=== PATIENT | male | born 1945 | race Caucasian/White ===

== ENCOUNTER 2022-05-03 06:26 | Emergency (ER) | payer OTHER, SELFPAY ==
[2022-05-03 06:27] VITALS: BP 197/106; PULSE 93; RESP 22; TEMP 36.4; O2SAT 97; BMI 24.5
--- NOTE | 2022-05-03 06:49 | CT_ITS ---
INDICATION: Cervical radiculopathy EXAMINATION: CT CERVICAL SPINE - CT Spine Cervical W/O Contrast Injection TECHNIQUE: Helically acquired images were obtained of the cervical spine. 2D reformatted images were reviewed. A radiation dose optimization technique was used for this scan. COMPARISON: None. FINDINGS: ALIGNMENT: Posterior subluxation of C1 on C2 up to 7 mm on the left. VERTEBRAL BODIES: Status post C3-C6 anterior spine fusion hardware and interbody spacers. No fracture or acute abnormality. DISC SPACES: Multilevel degenerative changes with mild to moderate spinal canal narrowing. POSTERIOR ELEMENTS: Normal. SPINAL CANAL: Normal. PARASPINAL SOFT TISSUES: Normal. LUNG APICES: Biapical paraseptal emphysema. OTHER: None. CT/Spine Cervical without Contras IMPRESSION: 1. No acute fracture. 2. Posterior subluxation of C1 on C2. 3. Status post C3-C5 spinal fusion. 4. Degenerative changes contributing to mild to moderate spinal canal narrowing. If there is continued clinical concern consider further characterization with MRI of the cervical spine. Electronically Signed: Adryan Bird MD at 7:46 EST ,
--- NOTE | 2022-05-03 06:49 | CT_ITS ---
INDICATION: Lumbar radiculopathy EXAMINATION: CT LUMBAR SPINE - CT Spine Lumbar W/O Contrast Injection TECHNIQUE: Helically acquired images were obtained of the lumbar spine. 2D reformats were reviewed. A radiation dose optimization technique was used for this scan. IV Contrast dosage and agent: None. COMPARISON: None. FINDINGS: VERTEBRAE: No fracture or traumatic subluxation. No discrete lytic or blastic abnormality observed. Normal alignment. DISCS and SPINAL CANAL: Multilevel degenerative changes with prominent disc desiccation, disc osteophyte complex formation and facet hypertrophy worst between L4 and S1 with severe spinal canal narrowing likely compressing the descending and severe neural foraminal narrowing worst on the left at L5-S1 likely contacting the exiting nerve root.. Mild levoscoliotic changes in the lumbar spine. VISUALIZED ABDOMEN: Atherosclerotic calcifications. Cystic changes in the partially visualized bilateral kidneys, incompletely evaluated. CT/Spine Lumbar without Contrast IMPRESSION: 1. No acute fracture or subluxation. 2. Severe multilevel degenerative changes with severe spinal canal narrowing likely compressing the descending nerve roots and severe left L5-S1 neuroforaminal narrowing likely contacting the exiting nerve root. Can be further characterized with MRI lumbar spine. Electronically Signed: Adryan Bird MD at 7:52 EST ,
[2022-05-03 07:03] LABS: Absolute Lymphocyte Count 2.63 X10^3/uL (0.83-4.51); Basophil# 0.05 X10^3/uL; Basophil% 0.5 % (0-1); Eosinophil# 0.26 X10^3/uL; Eosinophils% 2.6 % (0-5); Hematocrit 40.8 % (40-54); Hemoglobin 13.4 g/dL (13.0-16.5); Lymphocyte # 2.63 X10^3/ul (0.83-4.51); Lymphocyte % 26.7 % (19-41); Mean Corp Hgb Conc 32.8 g/dL (32-36); Mean Corpuscular Hgb 30.1 pg (27.0-32.0); Mean Corpuscular Volume 91.7 fL (80-94); Mean Platelet Vol. 9.9 fl (6.2-12.0); Monocyte# 0.85 X10^3/uL; Monocyte% 8.6 % (0-10); NRBC Flagged by Analyzer 0 % (0-5); Neutrophil # 6.03 X10^3/uL (2.7-7.7); Neutrophil % 61.2 % (47-70); Platelet Count 256 K/mm3 (150-450); RBC Distribution Width CV 12.8 % (11.6-14.6); RBC Distribution Width SD 43.3 fl (35.1-43.9); Red Blood Count 4.45 M/mm3 (4.6-6.2); White Blood Count 9.9 K/mm3 (4.4-11.0)
[2022-05-03] MEDS: Ondansetron 4 MG/2 ML Vial IV (07:10)
[2022-05-03] MEDS: Orphenadrine 60 MG/2 ML Ampul IV (07:11)
[2022-05-03] MEDS: Gabapentin 100 MG Capsule PO (07:15)
[2022-05-03] MEDS: Morphine 4 MG/ML Syringe IV (07:16)
[2022-05-03 07:19] LABS: Anion Gap 6 (5-15); BUN 21 mg/dL (7-18); BUN/Creat Ratio 16.8 RATIO (10-20); Calcium,Total 8.9 mg/dL (8.5-10.1); Chloride 107 mmol/L (98-107); Creatinine, Serum 1.25 mg/dL (0.70-1.30); EST Glomerular Filtration Rate 60 mL/min (>60); Est Glom Filt Rate - Afr Amer 72 mL/min (>60); Estimated Creatinine Clearance 48.47 ml/min; Glucose 127 mg/dL (74-106); Magnesium 2.3 mg/dL (1.6-2.6); Potassium 4.1 mmol/L (3.5-5.1); Sodium Level 141 mmol/L (136-145)
--- NOTE | 2022-05-03 08:11 | EX.ED.DYSGE1 ---
HPI History of Present Illness Chief Complaint: Numb/Ting Narrative Narrative: Patient is a 76-year-old male with past medical history of degenerative disc disease requiring cervical fusion. He states that he went to bed last night feeling normal. He states he awoke this morning and sat up and swung his legs out of bed as he normally does. He states as he went to stand up he noticed pain shooting from his left hip down to his left ankle/foot. He describes the pain as more of a burning and tingling sensation and states that he also noticed the same pain in his left arm. He states that the pain worsens with leg motion or arm motion and neck motion. He denies any type of headache fevers chills or recent trauma. He is able to ambulate without assistance despite this pain and states he is at his baseline mental status. The patient and are unsure if this was stroke related or related to his bad back and therefore he presents for evaluation. Regarding his back pain he denies any loss of bowel or bladder control or history of IV drug use [facility] Medical History (Updated 05/03/22 @ 08:[address] Chris Joy, ) Chronic pain Home Medications gabapentin 100 mg capsule 100 mg PO TID 30 days #90 caps 05/03/22 [Rx Last Taken Unknown] hydrocodone-acetaminophen 5-325mg 5mg-325mg 1 tab PO Q6H PRN Pain 05/03/22 [History Last Taken Unknown] methocarbamol 500 mg tablet 1,000 mg PO 4X/DAY PRN PRN Muscle pain/spasm 7 days #56 tabs 05/03/22 [Rx Last Taken Unknown] nabumetone 500 mg tablet 500 mg PO DAILY 05/03/22 [History Last Taken Unknown] Allergy/AdvReac Type Severity Reaction Status Date / Time tramadol [From Ultram] Allergy Hives Verified 05/03/22 06:34 Surgical History (Updated 05/03/22 @ 06:30 by Yonny Liu) H/O spinal fusion Social History Smoking Status: Current every day smoker tobacco type: cigarettes ROS ROS ED Constitutional Constitutional ED: Denies chills or fever(s) Eyes Eyes: Denies change in vision ENT ENT ED: Denies sore throat Cardiovascular Cardiovascular: Denies chest pain Respiratory/Chest Respiratory/Chest: Denies cough or dyspnea Gastrointestinal Gastrointestinal: Denies abdominal pain, diarrhea, nausea or vomiting Genitourinary Genitourinary ED: Denies dysuria Musculoskeletal Musculoskeletal: Reports back pain and neck pain Integumentary Denies rash Neurologic Neurologic: Reports paresthesias; Denies headache(s) Hematologic/Lymphatic Hematologic/Lymphatic: Denies easy bleeding or easy bruising EXAM Physical Exam Const Vital Signs: 05/03/22 06:27 Temperature 97.5 F L Temperature Source Temporal Pulse Rate 93 Respiratory Rate 22 H Blood Pressure 197/106 H Blood Pressure Mean 136 Pulse Ox 97 Oxygen Delivery Method Room Air Positive well nourished and well developed General Appearance ED: well developed HEENT Reports moist mucous membranes Eyes PERRL and EOMs intact bilaterally Neck supple Neck Narrative: No bony deformity or step-off of the cervical spine no midline pain on palpation. Patient does have a positive Spurling sign on left however. No nuchal rigidity or meningeal signs Resp normal respiratory effort and clear to auscultation bilaterally Cardio regular rate and regular rhythm Rate: other Other Details: Radial pulses are plus 2 out of 4 bilaterally are equal and symmetric GI non-tender and non-distended GI Narrative: Abdomen is soft nontender nondistended with hypoactive bowel sounds no voluntary guarding or rigidity. No pulsatile mass Auscultation: hypoactive bowel sounds Palpation: soft Back/Spine Back/Spine Narrative: No bony deformity or step-off of the thoracic or lumbar spine. No saddle anesthesia. Negative clonus and Babinski. Patellar reflexes are plus 3 out of 4 bilaterally. Positive straight leg raise on left at approximately 30 degrees. Extremity normal to inspection Neuro oriented x3 and CN's II-XII intact bilaterally Neuro Narrative: Cranial nerves II through XII are grossly intact. Patient does report mild paresthesias of the left arm and leg earning him a stroke scale score of 2. Otherwise he has no focal neurologic deficit. Sensorium / Orientation: alert Psych mental status grossly normal Skin no rashes or lesions noted MDM MDM MDM Narrative Medical decision making narrative: Patient presented to the ER hypertensive but is in pain and this is to be expected. He reported he awoke this way and therefore falls outside any type of stroke window. Moreover after talking to the patient and evaluating him his symptoms are consistent with cervical and lumbar radiculopathy and not an acute CVA. Therefore I felt no need to activate a stroke. Also he has no risk factors for cauda equina or epidural abscess. Patient had basic blood work obtained to check for electrolyte derangement as a cause of his paresthesias which was normal. CTs of the cervical spine and lumbar spine were obtained which showed severe degenerative disc disease with spinal cord compression on the left consistent with his symptoms. The patient was given morphine Zofran gabapentin and Norflex and on reevaluation had improvement of his symptoms. At this time his history and exam do not correlate with acute CVA. Work-up shows no electrolyte derangements and his CAT scans correlate with his symptoms. However he does not have any type of neuro claudication or obvious neurologic deficit so there is no need for emergent neurosurgery/spinal surgery evaluation. The patient will be started on muscle relaxers and gabapentin and states he will follow-up with his pain management doctor to discuss further treatment as he is not want any further surgical process for his back. Lab Data Attestation: I reviewed the patient's lab results. Labs: Laboratory Results - last 24 hr 05/03/22 05/03/22 06:56 06:56 WBC 9.9 RBC 4.45 L Hgb 13.4 Hct 40.8 MCV 91.7 MCH 30.1 MCHC 32.8 RDW Std Deviation 43.3 RDW Coeff of Hayley 12.8 Plt Count 256 MPV 9.9 Immature Gran % (Auto) 0.400 Neut % (Auto) 61.2 Lymph % (Auto) 26.7 [place] % (Auto) 8.6 Eos % (Auto) 2.6 Baso % (Auto) 0.5 Absolute Neuts (auto) 6.0 Absolute Lymphs (auto) 2.63 Nucleated RBC % 0 Sodium 141 Potassium 4.1 Chloride 107 Carbon Dioxide 28.0 Anion Gap 6 BUN 21 H Creatinine 1.25 Estim Creat Clear Calc 48.47 Est GFR (MDRD) Af Amer 72 Est GFR (MDRD) Non-Af 60 BUN/Creatinine Ratio 16.8 Glucose 127 H Calcium 8.9 Magnesium 2.3 Radiography Diagnostic Testing: Clinical Impression(s) from Imaging Studies Cervical Spine CT 05/03/22 06:49 IMPRESSION: 1. No acute fracture. 2. Posterior subluxation of C1 on C2. 3. Status post C3-C5 spinal fusion. 4. Degenerative changes contributing to mild to moderate spinal canal narrowing. If there is continued clinical concern consider further characterization with MRI of the cervical spine. Electronically Signed: Adryan Bird MD at 7:46 EST , Lumbar Spine CT 05/03/22 06:49 IMPRESSION: 1. No acute fracture or subluxation. 2. Severe multilevel degenerative changes with severe spinal canal narrowing likely compressing the descending nerve roots and severe left L5-S1 neuroforaminal narrowing likely contacting the exiting nerve root. Can be further characterized with MRI lumbar spine. Electronically Signed: Adryan Bird MD at 7:52 EST , Discharge Plan Triage Chief Complaint: Numb/Ting ED Provider: Chris Joy Dx/Rx/DC Orders Clinical Impression: Cervical radiculopathy, Lumbar radiculopathy, Degenerative disc disease Instructions: Radiculopathy Cervical, ED Degenerative Disk Disease Prescriptions: New methocarbamol 500 mg tablet 1,000 mg PO 4X/DAY PRN PRN (Reason: Muscle pain/spasm) 7 Days Qty: 56 1RF Rx Instructions: 1 to 2 pills by mouth 4 times daily as needed muscle pain/spasm gabapentin 100 mg capsule 100 mg PO TID 30 Days Qty: 90 0RF No Action hydrocodone-acetaminophen 5-325 mg Tablet 1 tab PO Q6H PRN (Reason: Pain) nabumetone 500 mg tablet 500 mg PO DAILY Primary Care Provider: Samantha Stuart NP Referrals: Samantha Stuart NP, [employer] [Primary Care Provider] - Activity Restrictions/Additional Instructions: Please talk to your pain management doctor about continuing your gabapentin if it helps control your symptoms and discuss possible radiofrequency ablation. If you change your mind about surgery follow-up with neurosurgery/spine to discuss need for MRI or further treatment options. If you have any further concerns please return for repeat evaluation Disposition Disposition: Home, Self Care
[2022-05-03 08:50] VITALS: BP 134/92; PULSE 93; RESP 16; O2SAT 98
== END 2022-05-03 08:55 | disposition home or self-care (01) ==
PROVIDERS: Emergency Provider Emergency Medicine; PCP Nurse Practitioner Primary Care; Visit Provider Emergency Medicine
DX: M51.16 Intervertebral disc disorders with radiculopathy, lumbar region (principal); F17.210 Nicotine dependence, cigarettes, uncomplicated; R20.0 Anesthesia of skin; R20.2 Paresthesia of skin; M50.10 Cervical disc disorder with radiculopathy, unspecified cervical region
CPT/HCPCS: 72125; 72131; 80048; 83735; 85025; 96374; 96375; 99284; A4216; J2405

== ENCOUNTER → 2022-07-27 | Outpatient (CLI) | payer OTHER, SELFPAY ==
--- NOTE | 2022-07-27 15:16 | ART_ITS ---
Reason For Study: Decreased pedal pulses Procedure A bilateral lower extremity continuous wave Doppler with analog waveform analysis,segmental pressures,and ankle brachial indexes without exercise. Left Segmental Pressures Left brachial= 141mmHg. Left posterior tibial artery = 139mmHg. Left dorsalis pedis artery = 142mmHg. The left dorsalis pedis waveforms are triphasic. The left posterior tibial artery waveforms are triphasic. Right Segmental Pressures Right brachial= 140mmHg. Right posterior tibial artery = 158mmHg. Right dorsalis pedis artery = 137mmHg. The right dorsalis pedis waveforms are triphasic. The right posterior tibial artery waveforms are triphasic. Indices The right ankle brachial index by the dorsalis pedis is 0.97. The right ankle brachial index by the posterior tibial artery is 1.12. The left ankle brachial index by the dorsalis pedis is 1.01. The left ankle brachial index by the posterior tibial artery is 0.99. VL/Lower Ext Art Exam w/o Exercis Interpretation Summary Normal right lower extremity posterior tibialis and dorsalis pedis ankle-brachi al indices of 1.12 and 0.97 respectively with normal triphasic Doppler waveforms Normal left lower extremity posterior tibialis and dorsalis pedis ankle-brachia l indices of 0.99 and 1.01 respectively with normal triphasic Doppler waveforms Ordering Physician: Samantha Stuart Referring Physician: SAMANTHA STUART [employer] Performed By: Savita Moulton RVT
== END | disposition home or self-care (01) ==
LOC: CVS 14:38
PROVIDERS: PCP Nurse Practitioner Primary Care; Referring Provider Nurse Practitioner Primary Care; Visit Provider Nurse Practitioner Primary Care
DX: R09.89 Other specified symptoms and signs involving the circulatory and respiratory systems (principal)
CPT/HCPCS: 93923

== ENCOUNTER → 2022-08-03 | Outpatient (CLI) | payer OTHER, SELFPAY ==
--- NOTE | 2022-08-03 15:47 | CT_ITS ---
INDICATION: L SIDED WEAKNESS EXAMINATION: CT BRAIN WITH AND WITHOUT CONTRAST - CT Head or Brain WO/W Contrast Injection TECHNIQUE: Multiple axial images were obtained of the brain with and without IV contrast. A radiation dose optimization technique was used for this scan. IV Contrast dosage and agent: RADIATION DOSAGE (If Supplied By Facility): CTDIvol = ( 44.99 ) mGy, DLP = ( 1547.23 ) mGycm COMPARISON: FINDINGS: BRAIN: No acute bleed. No edema. Mild decreased attenuation in the periventricular white matter bilaterally. Finley-white matter differentiation is maintained. Arterial calcifications. No abnormal contrast enhancement or enhancing mass lesion identified on postcontrast images. VENTRICLES AND SULCI: Not dilated. EXTRA-AXIAL: No hemorrhage, fluid collection, or mass. CALVARIUM / SKULL BASE: Unremarkable. FACE/SINUSES: Unremarkable. SOFT TISSUES: Unremarkable. CT/Brain/Head W/WO Contrast IMPRESSION: No acute abnormality. No enhancing mass identified. CT angiogram and/or MRI may be helpful to evaluate for acute infarct as clinically indicated. Electronically Signed: Etelvina Alfonso MD at 5:43 EDT ,
[2022-08-03 16:15] LABS: CREATININE FINGERSTICK 1.4 mg/dL (0.70-1.30)
== END | disposition home or self-care (01) ==
LOC: CT 15:46
PROVIDERS: PCP Nurse Practitioner Primary Care; Referring Provider Nurse Practitioner Primary Care; Visit Provider Nurse Practitioner Primary Care
DX: R53.1 Weakness (principal)
CPT/HCPCS: 70470; Q9967

== ENCOUNTER → 2025-01-20 | Outpatient (CLI) | payer OTHER, SELFPAY ==
--- NOTE | 2025-01-20 10:18 | RAD_ITS ---
RAD/L/S Spine Min 4 Views
== END | disposition home or self-care (01) ==
LOC: RAD 10:17
PROVIDERS: PCP Nurse Practitioner Primary Care; Referring Provider Student in an Organized Health Care Education/Training Program; Visit Provider Student in an Organized Health Care Education/Training Program
DX: M54.9 Dorsalgia, unspecified (principal)
CPT/HCPCS: 72110

== ENCOUNTER → 2025-02-04 | Outpatient (CLI) | payer OTHER, SELFPAY ==
--- NOTE | 2025-02-04 07:11 | MRI_ITS ---
PROCEDURE: SPINE LUMBAR (ROUTINE) 02/04/2025 REASON FOR EXAM: LUMBAR PAIN WITH L LEG WEAKNESS TECHNIQUE: Procedure Code: MRISPL Modality: MR Procedure: SPINE LUMBAR (ROUTINE) COMPARISON: Conventional radiographs FINDINGS: T11-L1: Vertebral bodies: Negative. Disk Space: Negative. Negative for Modic changes. Facet Joints: Negative for bilateral facet joint hypertrophy. Neural foramina: Negative for neural foraminal narrowing Spinal Canal: Negative for central spinal narrowing. L1-2: Vertebral bodies: Negative. Disk Space: Disc desiccation mild loss of disc height. Mild diffuse disc bulge. Negative for Modic changes. Facet Joints: Moderate bilateral facet joint hypertrophy. Neural foramina: Mild bilateral neural foraminal narrowing Spinal Canal: Negative for subarticular zone narrowing. Negative for central spinal narrowing. L2-3: Vertebral bodies: Negative. Disk Space: Disc desiccation moderate loss of disc height. Moderate posterior osteophyte disc complex. Negative for Modic changes. Facet Joints: Moderate bilateral facet joint hypertrophy. Neural foramina: Severe right and moderate left neural foraminal narrowing Spinal Canal: Moderate right and mild left subarticular zone narrowing. Moderate right central spinal narrowing. L3-4: Vertebral bodies: Negative. Disk Space: Disc desiccation. Mild loss of disc height. Left central zone through far lateral zone disc protrusion. Negative for Modic changes. Facet Joints: Severe bilateral facet joint hypertrophy. Neural foramina: Severe bilateral neural foraminal narrowing Spinal Canal: Severe left and moderate right subarticular zone narrowing. Severe left central spinal narrowing. L4-5: Vertebral bodies: Negative. Disk Space: Disc desiccation with severe loss of disc height. Mild posterior osteophyte disc complex. Facet Joints: Moderate left and mild right bilateral facet joint hypertrophy. Neural foramina: Moderate left and mild right neural foraminal narrowing Spinal Canal: Mild left subarticular zone narrowing. Mild left central spinal narrowing. L5-S1: Vertebral bodies: Negative. Disk Space: Disc desiccation mild loss of disc height. Negative for Modic changes. Facet Joints: Mild bilateral facet joint hypertrophy. Neural foramina: Mild bilateral neural foraminal narrowing Spinal Canal: Negative for subarticular zone narrowing. Negative for central spinal narrowing. Vertebrae: Normal bone marrow signal. Conus Medullaris: Spinal cord is normal and ends at L1-L2. The distal abdominal aorta ectasia measuring maximum dimension of 3.0 cm. Atrophic kidneys with left renal cysts. Imaged kidneys aorta otherwise negative. The remainder of the exam negative. MRI/Spine Lumbar (Routine) IMPRESSION: Multilevel multifactorial degenerative changes lumbar spine most prominent to t he left at L3-L4 and L4-5 and to the right at L2-L3 as above. Reading Location: [id number]
--- OUTSIDE RECORDS SUMMARY | 2025-02-04 07:11 | XMS RPT_ITS | CCD ---
Author Organization [facility] Care Team Providers Care Manager Landscape Name Role Phone ERNESTINA, BECCA S. Unavailable Unavailable ERNESTINA, BECCA S. Unavailable Unavailable ERNESTINA, BECCA S. Unavailable Unavailable ERNESTINA, BECCA S. Unavailable Unavailable Ernestina SENIOR CLINICAL SAS PROGRAMMER, SENIOR CLINICAL SAS PROGRAMMER-C Becca Primary Care Provider Dr. Maikel Mari Attending Provider Ernestina SENIOR CLINICAL SAS PROGRAMMER, Becca Primary Care Unavailable Ernestina SENIOR CLINICAL SAS PROGRAMMER, Becca Referring Unavailable Edwina Puri Attending Unavailable Nadja Brito Attending Unavailable Nadja Brito Referring Unavailable Enrestina SENIOR CLINICAL SAS PROGRAMMER, Becca Primary Care Unavailable Ernestina SENIOR CLINICAL SAS PROGRAMMER, Becca Primary Care Unavailable Ernestina SENIOR CLINICAL SAS PROGRAMMER, Becca Attending Unavailable Ernestina SENIOR CLINICAL SAS PROGRAMMER, Becca Referring Unavailable Allergies Allergy Classification Reported Allergen(s) Allergy Type Date of Onset Reaction(s) Facility (1 source) traMADol Drug Allergy 05-03-2022 [facility] (1 source) traMADol Drug Allergy 05-03-2022 [facility] Repository Medications Current Medications Medication Drug Class(es) Dates Sig (Normalized) Sig (Original) acetaminophen 325 mg / HYDROcodone bitartrate 5 mg oral tablet (1 source) Opioid Agonist Start: 05-03-2022 take 1 tablet by mouth every six hours Hydrocodone-Acetami nophen Active 1 TABLET PO EVERY 6 HOURS May 03, 2022 1:00am gabapentin 100 mg oral capsule (1 source) Anti-epileptic Agent Start: 05-03-2022 take 100 mg by mouth three times daily Gabapentin Active 100 MG PO THREE TIMES A DAY 90 30 May 03, 2022 1:00am methocarbamol 500 mg oral tablet (1 source) Muscle Relaxant Start: 05-03-2022 take 1-2 doses by mouth four times daily as needed for pain Methocarbamol Active 1000 MG PO 4 TIMES DAILY NEEDED 56 7 May 03, 2022 9:13am 1 to 2 pills by mouth 4 times daily as needed muscle pain/spasm nabumetone 500 mg oral tablet (1 source) Nonsteroidal Anti-inflammatory Drug Start: 05-03-2022 take 500 mg by mouth once daily Nabumetone Active 500 MG PO DAILY May 03, 2022 1:00am Problems Problem Classification Problem Date Documented Date Episodic/Chronic Other upper respiratory infections (1 source) Acute maxillary sinusitis, unspecified; Translations: [Acute maxillary sinusitis, unspecified] Onset: 12-31-2024 Episodic Spondylosis; intervertebral disc disorders; other back problems (1 source) Degeneration of intervertebral disc; Translations: [Degeneration of intervertebral disc] 05-11-2022 Chronic Spondylosis; intervertebral disc disorders; other back problems (5 sources) Lumbar radiculopathy; Translations: [Radiculopathy, lumbar region] Onset: 12-31-2024 05-11-2022 Episodic Results Test Name Value Interpretation Reference Range Facility L/S Spine Min 4 Viewson 11-0 L/S Spine Min 4 Views [facility] Imaging Services [address] [place] [address] L/S Spine Min 4 Views MR#: [id number] Acct: [id number] Name: BILLIE PYLE Rep #: [id number] : 1945 79 From: Reji Tobin MD PCP: Becca Stuart SENIOR CLINICAL SAS PROGRAMMER-C Status: REG CLI Study: L/S Spine Min 4 Views Date of Exam: 01/20/25 Exam# [id number] Ordering Dr: Nadja Brito EXAM: XR Lumbosacral Spine, 4 or 5 Views CLINICAL INDICATION: BACK PAIN TECHNIQUE: Frontal, lateral and bilateral oblique views of the lumbar spine. COMPARISON: No relevant prior studies available. FINDINGS: VERTEBRAE: Mild levoconvex curvature of the mid lumbar spine. Degenerative facet arthropathy throughout the lumbar spine, most prominent in the lower lumbar spine. No acute fracture or significant dynamic instability. SACRUM/COCCYX: Unremarkable as visualized. No acute fracture. DISC SPACES: Degenerative disc disease throughout the lumbar spine. SOFT TISSUES: Unremarkable. RAD/L/S Spine Min 4 Views IMPRESSION: 1. No acute fracture or significant dynamic instability. 2. Degenerative changes lumbar spine as described. Reading Location: [facility] CC: BRAULIO Stuart; SHARON Leiva Parent Trainer: Signed Normal [facility] Absolute lymphocyte countOrd ered By: Chris Joy on 05-03-2022 Lymphocytes Auto (Unsp spec) [#/Vol] 2.63 10*3/uL 0.83-4.51 [facility] Basophil percentageOrdered B y: Chris Joy on 05-03-2022 Basophils/100 WBC (Bld) 0.5 % 0-1 [facility] Chloride [Moles/Vol] 107 mmol/L 98-107 [facility] Eosinophils/100 WBC (Bld) 2.6 % 0-5 [facility] Glucose [Mass/Vol] 127 mg/dL 74-106 [facility] Comment on above: Fasting Glucose resu lt greater than or equal to 126 mg/dL suggests DIABETES MELLITUS per A.D.A. criteria. Neutrophils (Bld) [#/Vol] 6.0 10*3/uL 2.0-7.7 [facility] Neutrophils/100 WBC (Bld) 61.2 % 47-70 [facility] Potassium [Moles/Vol] 4.1 mmol/L 3.5-5.1 [facility] Sodium [Moles/Vol] 141 mmol/L 136-145 [facility] WBC (Bld) [#/Vol] 9.9 10*3/uL 4.4-11.0 [facility] Blood erythrocytes count (nu mber/volume)Ordered By: Chris Joy on 05-03-2022 RBC (Bld) [#/Vol] 4.45 10*6/uL 4.6-6.2 [facility] Blood hemoglobin measurement (mass/volume)Ordered By: Chris Joy on 05-03-2022 Hemoglobin (Bld) [Mass/Vol] 13.4 g/dL 13.0-16.5 [facility] Blood lymphocytes/100 leukoc ytesOrdered By: Chris Joy on 05-03-2022 Lymphocytes/100 WBC (Bld) 26.7 % 19-41 [facility] Blood monocytes/100 leukocyt esOrdered By: Chris Joy on 05-03-2022 Monocytes/100 WBC (Bld) 8.6 % 0-10 [facility] Blood platelet mean volumeOr dered By: Chris Joy on 05-03-2022 Platelet mean volume (Bld) [Entitic vol] 9.9 fL 6.2-12.0 [facility] Determination of erythrocyte mean corpuscular volume (MCV)Ordered By: Chris Joy on 05-03-2022 MCV (RBC) [Entitic vol] 91.7 fL 80-94 [facility] Hematocrit Auto (Bld) [Volum e fraction]Ordered By: Chris Joy on 05-03-2022 Hematocrit (Bld) [Volume fraction] 40.8 % 40-54 [facility] Laboratory - Chemistry and C hemistry - challengeOrdered By: Chris Joy on 05-03-2022 CO2 [Moles/Vol] 28.0 mmol/L 21.0-32.0 [facility] Magnesium [Mass/Vol] 2.3 mg/dL 1.6-2.6 [facility] Urea nitrogen/Creatinine [Mass ratio] 16.8 mg/mg 10-20 [facility] Laboratory - Hematology and Cell countsOrdered By: Chris Joy on 05-03-2022 Erythrocyte distribution width (RBC) [Entitic vol] 43.3 fL 35.1-43.9 [facility] Erythrocyte distribution width (RBC) [Ratio] 12.8 % 11.6-14.6 [facility] Immature granulocytes/100 WBC (Bld) 0.400 % 0.0-0.9 [facility] Comment on above: IG% - Immature Granu locytes (promyelocytes, myelocytes and metamyelocytes) > 1% indicates that a LEFT SHIFT is Present. MCH (RBC) [Entitic mass] 30.1 pg 27.0-32.0 [facility] Nucleated RBC/100 WBC (Bld) [Ratio] 0 % 0-5 [facility] MCHC Auto (RBC) [Mass/Vol]Or dered By: Chris Joy on 05-03-2022 MCHC (RBC) [Mass/Vol] 32.8 g/dL 32-36 [facility] No Panel InformationOrdered By: Chris Joy on 05-03-2022 Estimated Creatinine Clearance Calc 48.47 ml/min [facility] Estimated GFR (MDRD) Amer 72 mL/min >60 [facility] Comment on above: GFR Calc Estimated GFR (MDRD) Non-Af Amer 60 mL/min >60 [facility] Comment on above: Non- GFR Calc Platelets bldOrdered By: Aníbal Joy on 05-03-2022 Platelets (Bld) [#/Vol] 256 10*3/uL 150-450 [facility] Serum or plasma calcium aris urement (mass/volume)Ordered By: Chris Joy on 05-03-2022 Calcium [Mass/Vol] 8.9 mg/dL 8.5-10.1 [facility] Serum or plasma creatinine m easurement (mass/volume)Ordered By: Chris Joy on 05-03-2022 Creatinine [Mass/Vol] 1.25 mg/dL 0.70-1.30 [facility] Comment on above: The validity of the calculated GFR & GFRAA in patients over 70 years has not been determined. Clinical correlation is essential. Serum or plasma urea nitroge n measurement (mass/volume)Ordered By: Chris Joy on 05-03-2022 Urea nitrogen [Mass/Vol] 21 mg/dL 7-18 [facility] Thin prep Papanicolaou smear with manual screeningOrdered By: Chris Joy on 05-03-2022 Thin prep Papanicolaou smear with manual screening 6 - [facility] VL VENOUS UNILATERAL LOWER E XT FOR DVTon 07-05-2017 VL VENOUS UNILATERAL LOWER EXT FOR DVT ORIGINALDUPLEX LOWER EXTREMITY VENOUS DOPPLER: Right side Clinical Statement: rt leg pain , , injury Comparison: None Findings: The right femoral and popliteal veins and the proximal visualized portions of the posterior tibial, peroneal, soleal and gastrocnemius veins show no direct or indirect evidence of thrombosis. There is normal phasic spontaneous flow in these veins which are also compressible. Spectral analysis shows normal flow augmentation in the superficial femoral and popliteal veins with physiologic maneuvers. The greater and lesser saphenous veins are also patent. An elliptical deep subcutaneous fluid collection is seen at the site of injury in the mid calf region that is about 3.1 x 4.0 x 0.6 cm. This is almost anechoic with no blood flow on. IMPRESSION:No evidence of deep vein thrombosis in right lower extremity. There is a fluid collection/hematoma at the site of injury in the lower leg as described. Interpreted By: Baljinder Mcnairreliminary Report By: Baljinder Mcnair MDElectronically Signed By: Baljinder Mcnair MD Dictated Date: 07/05/2017 3:31:06 PM Prelim Date: 07/05/2017 3:31:06 PM Sign Date: 07/05/2017 3:32:27 PM Normal [facility] ([place]) XR FOOT MINIMUM 3 VIEWS [facility] 07-04-2017 XR FOOT MINIMUM 3 VIEWS RIGHT ORIGINALXR FOOT MINIMUM 3 VIEWS RIGHT CLINICAL STATEMENT: pain. COMPARISON: None FINDINGS: No acute fracture or dislocation is identified. The joint spaces are maintained. There is no radiopaque foreign body. There is soft tissue swelling centered at the tarsal/metatarsal joints.. IMPRESSION: No acute fracture or dislocation. Interpreted By: Kaitlynn Milesinary Report By: Sly Miles ly Signed By: Alfredo Miles Dictated Date: 07/04/2017 3:20:04 PM Prelim Date: 07/04/2017 3:20:04 PM Sign Date: 07/04/2017 3:20:50 PM Normal [facility] ([place]) XR TIBIA/FIBULA 2 VIEWS [facility] 07-04-2017 XR TIBIA/FIBULA 2 VIEWS RIGHT ORIGINALXR TIBIA/FIBULA 2 VIEWS RIGHT CLINICAL STATEMENT: pain. COMPARISON: None FINDINGS: No acute fracture or dislocation is identified. There is no radiopaque foreign body. IMPRESSION: No acute fracture or dislocation. Interpreted By: Kaitlynn Milesinary Report By: Sly Miles ly Signed By: Alfredo Miles Dictated Date: 07/04/2017 3:04:35 PM Prelim Date: 07/04/2017 3:04:35 PM Sign Date: 07/04/2017 3:05:31 PM Normal [facility] ([place]) Vital Signs Date Time Vital Sign Value Performing Clinician Mary Jane villalobos 05-03-2022 08:50-0500 Diastolic blood pressure 92 mm[Hg] SENIOR CLINICAL SAS PROGRAMMER-C Becca Stuart SENIOR CLINICAL SAS PROGRAMMER Work Phone: [facility] 05-03-2022 08:50-0500 Heart rate 93 /min SENIOR CLINICAL SAS PROGRAMMER-C Becca Stuart SENIOR CLINICAL SAS PROGRAMMER Work Phone: [facility] 05-03-2022 08:50-0500 Respiratory rate 16 /min SENIOR CLINICAL SAS PROGRAMMER-C Becca Stuart SENIOR CLINICAL SAS PROGRAMMER Work Phone: [facility] 05-03-2022 08:50-0500 SaO2% (BldA) [Mass fraction] 98 % SENIOR CLINICAL SAS PROGRAMMER-C Becca Stuart SENIOR CLINICAL SAS PROGRAMMER Work Phone: [facility] 05-03-2022 08:50-0500 Systolic blood pressure 134 mm[Hg] SENIOR CLINICAL SAS PROGRAMMER-C Becca Stuart SENIOR CLINICAL SAS PROGRAMMER Work Phone: [facility] 05-03-2022 06:27-0500 Body height 170.18 cm SENIOR CLINICAL SAS PROGRAMMER-C Becca Stuart SENIOR CLINICAL SAS PROGRAMMER Work Phone: [facility] 05-03-2022 06:27-0500 Body mass index (BMI) [Ratio] 24.5 kg/m2 SENIOR CLINICAL SAS PROGRAMMER-C Becca Stuart SENIOR CLINICAL SAS PROGRAMMER Work Phone: [facility] 05-03-2022 06:27-0500 Body temperature 97.5 [degF] SENIOR CLINICAL SAS PROGRAMMER-C Becca Stuart SENIOR CLINICAL SAS PROGRAMMER Work Phone: [facility] 05-03-2022 06:27-0500 Body weight 71.1 kg SENIOR CLINICAL SAS PROGRAMMER-C Becca Stuart SENIOR CLINICAL SAS PROGRAMMER Work Phone: [facility] Encounters Encounter Date Encounter Type Care Provider Facility Start: 01-29-2025 ambulatory Becca Stuart SENIOR CLINICAL SAS PROGRAMMER Facil ity:[facility] Start: 01-20-2025 End: 01-20-2025 ambulatory Nadja Brito Facility:[facility] Start: 01-04-2025 ambulatory Becca Stuart SENIOR CLINICAL SAS PROGRAMMER Facil ity:[facility] Start: 07-27-2022 Non-patient / Non-visit SENIOR CLINICAL SAS PROGRAMMER-C Karen Stuart SENIOR CLINICAL SAS PROGRAMMER Work Phone: [facility] Start: 07-27-2022 End: 07-27-2022 ambulatory SENIOR CLINICAL SAS PROGRAMMER-C Becca Stuart SENIOR CLINICAL SAS PROGRAMMER Work Phone: [facility] Work Phone: Start: 07-27-2022 End: 07-27-2022 Patient encounter procedure SENIOR CLINICAL SAS PROGRAMMER-C Becca Ernestina SENIOR CLINICAL SAS PROGRAMMER Work Phone: [facility] Start: 05-03-2022 End: 05-03-2022 Emergency department patient visit SENIOR CLINICAL SAS PROGRAMMER-C Becca Stuart SENIOR CLINICAL SAS PROGRAMMER Work Phone: [facility]-Emergency Department Start: 07-05-2017 End: 07-06-2017 Ambulatory BECCA STUART Facility:[facility] Start: 07-04-2017 End: 07-05-2017 Ambulatory BECCA STUART Facility:[facility] Procedures Date Procedure Procedure Detail Performing Clinician Start: 05-03-2022 CT cervical spine wi thout contrast SENIOR CLINICAL SAS PROGRAMMER-C Becca Stuart SENIOR CLINICAL SAS PROGRAMMER Work Phone: Start: 05-03-2022 CT of lumbar spine SENIOR CLINICAL SAS PROGRAMMER-C Becca Stuart SENIOR CLINICAL SAS PROGRAMMER Work Phone: Plan of Treatment Date Care Activity Detail Author Patient Education Radiculopathy Cervical ED Degenerative Disk Disease [facility] Work Phone: Patient referral [facility] Work Phone: Payers Date Payer Category Payer Self-pay 2024 Unknown [id number] 2017 Private Health Insurance [id number] 2000 Unknown [employer]NAGEMENT [id number] Medicare MEDICARE A ONLY [id number] Unknown [id number] Unknown [id number] 2 Unknown [id number] 2 Social History Date Type Detail Facility Start: 05-03-2022 Tobacco smoking stat us NHIS Unknown if ever smoked [facility] Start: 1945 Sex Assigned At Male [facility] Mental Status Date Assessment Result Facility 05-03-2022 Cognitive function Voice/Name [facility] Work Phone: Evaluation note Note Date & Type Note Facility Evaluation note No assessment information availa ble [facility] Work Phone: Summary Purpose Family History No Family History Records FoundNo Family History Records Found Advance Directives No Advanced Directives Records Found Advance Directive Response Recorded Date/ Time Living Will No May 03 023 7:29am Power of Hotbed Operator No May 03, 2022 7:29am Chief Complaint and Reason for Visit Chief Complaint n/t BILAT DECREASED PETAL PULSES Additional Source Comments (unrecognized sect ion and content) No Status Records FoundNo Status Records Found INFORMATION SOURCE (unrecogn ized section and content) DATE CREATED AUTHOR 09/06/2017 [facility] ([place]) DATE CREATED AUTHOR AUTHOR'S ORGANIZ ATION 01/29/2025 [facility] Care Teams (unrecognized sec tion and content) Team Status: Active Member Role Status Dates Becca Stuart NP, SENIOR CLINICAL SAS PROGRAMMER-C Primary Care Provider Active Team Status: Active Member Role Status Dates Becca Stuart NP, SENIOR CLINICAL SAS PROGRAMMER-C Primary Care Provider Active Dr. Maikel Mari MD Attending Provider Active Team Status: Inactive Member Role Status Dates Becca Stuart NP, SENIOR CLINICAL SAS PROGRAMMER-C Primary Care Provider Active Dr. Chris Joy DO Attending Provider, Emergency Pr ovider Active Team Status: Inactive Member Role Status Dates Becca Stuart NP, SENIOR CLINICAL SAS PROGRAMMER-C Primary Care Pro vider, Attending Provider, Referring Provider Active Goals (unrecognized section and content) Goals may be documented in a n alternate section FOR RECORDS PERTAINING TO PATIENTS WHO ARE OR HAVE BEEN ENROLLED IN A CHEMICAL DEPENDENCY/SUBSTANCEABUSE PROGRAM, SOME INFORMATION MAY BE OMITTED. This clinical summary was aggregated from multiple sources. Caution should be exercised in using it in the provision of clinical care. This summary normalizes information from multiple sources, and as a consequence, information in this document may materially change the coding, format and clinical context of patient data. In addition, data may be omitted in some cases. CLINICAL DECISIONS SHOULD BE BASED ON THE PRIMARY CLINICAL RECORDS. [facility] [employer] [facility]. provides no warranty or guarantee of the accuracy or completeness of information in this document.
== END | disposition home or self-care (01) ==
LOC: MRI 07:07
PROVIDERS: PCP Nurse Practitioner Primary Care; Referring Provider Nurse Practitioner Family; Visit Provider Nurse Practitioner Family
DX: M54.16 Radiculopathy, lumbar region (principal)
CPT/HCPCS: 72148